=== PATIENT | male | born 1960 | race African-American/Black ===

== ENCOUNTER 2017-01-13 22:48 | Emergency (ER) | payer OTHER ==
[~2017-01-13] VITALS: Ht 190.5 cm; Wt 131.5 kg
--- NOTE | ~2017-01-13 | EKG ---
[place] [address] 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
[~2017-01-13 22:48] MED LIST: ANASTROZOLE1 MG PO; ANDRODERM1 EAC1; CARISOPRODOL 3350 MG PO; CIALIS10 MG PO; IBUPROFEN 600600 M1 PO; IBUPROFEN 800800 M1 PO; IBUPROFEN200 M2 PO; MEDROLDOSEPACK PO; NORCO 5-325 TA1 EACH PO; PRILOSEC20 MG PO; ULTRAM 50MG TAB50 MG PO; ZPAK PO
[2017-01-13 23:31] LABS: ABSOLUTE NEUTROPHILS 2.2 thou/uL (1.4-8.2); BASOPHILS 0.9 % (0.0-2.0); EOSINOPHILS 2.6 % (0.0-3.0); HEMATOCRIT 44.5 % (42.0-52.0); HEMOGLOBIN 15.5 gm/dL (14.0-18.0); LYMPHOCYTES 34.7 % (24.0-44.0); MCH 30.3 pg (26.0-34.0); MCHC 34.8 g/dL (28.0-37.0); MONOCYTES 9.4 % (1.0-8.0); PLATELET COUNT 242 thou/uL (150-400); POLYS 52.4 % (36.0-66.0); RBC 5.11 mil/uL (4.50-6.00); RDW 12.9 % (10.5-14.5); WBC 4.3 thou/uL (4.0-11.0)
[2017-01-13 23:32] LABS: MANUAL DIFF NO
[2017-01-13 23:35] LABS: ANION GAP 10 mmol/L (7-16); BUN 19 mg/dL (7-18); CALCIUM 9.6 mg/dL (8.5-10.1); CHLORIDE 103 mmol/L (98-107); CO2 25 mmol/L (21-32); CREATININE 1.6 mg/dL (0.7-1.3); GLUCOSE 134 mg/dL (74-106); POTASSIUM 4.3 mmol/L (3.5-5.1); SODIUM 138 mmol/L (136-145)
[2017-01-13 23:44] LABS: ALBUMIN 4.2 g/dL (3.4-5.0); ALKALINE PHOSPHATASE 99 U/L (46-116); MAGNESIUM 2.1 mg/dL (1.8-2.4); SGOT 69 U/L (15-37); SGPT 77 U/L (30-65); TOTAL BILIRUBIN 0.5 mg/dL (<0.1-1.0); TROPONIN-I < 0.04 ng/mL (<0.04-0.07)
[2017-01-13] MEDS ORDERED: PRILOSEC 20 MG20 MG PO (23:53)
[2017-01-13] MEDS ORDERED: NAPROSYN500 MG PO (23:53)
[2017-01-14 00:35] VITALS: BP 149/75
== END 2017-01-14 00:40 | disposition home or self-care (01) ==
LOC: ER 22:48
PROVIDERS: Emergency Medicine
DX: R07.89 Other chest pain (principal); K21.9 Gastro-esophageal reflux disease without esophagitis; I49.3 Ventricular premature depolarization

== ENCOUNTER 2017-04-08 18:55 | Emergency (ER) | payer OTHER ==
[~2017-04-08] VITALS: Ht 190.5 cm; Wt 135.6 kg
[~2017-04-08 18:55] MED LIST changes: +NAPROSYN500 MG PO; +PRILOSEC 20 MG20 MG PO
[2017-04-08 19:52] LABS: CALCIUM 9.2 mg/dL (8.5-10.1); CREATININE 1.7 mg/dL (0.7-1.3); HEMATOCRIT 44.1 % (42.0-52.0); HEMOGLOBIN 15.7 gm/dL (14.0-18.0); MCH 30.3 pg (26.0-34.0); MCHC 35.6 g/dL (28.0-37.0); MCV 85.2 fL (80.0-100.0); PLATELET COUNT 188 thou/uL (150-400); POTASSIUM 4.6 mmol/L (3.5-5.1); RBC 5.18 mil/uL (4.50-6.00); RDW 13.4 % (10.5-14.5); WBC 4.6 thou/uL (4.0-11.0)
[2017-04-08 20:13] LABS: ABSOLUTE NEUTROPHILS 3.9 thou/uL (1.4-8.2)
[2017-04-08] MEDS ORDERED: PROVENTIL HFA6.7 G1 INH (20:14)
[2017-04-08] MEDS ORDERED: PROMETHAZINE/C118 ML PO (20:32)
== END 2017-04-08 21:13 | disposition home or self-care (01) ==
LOC: ER 18:55
PROVIDERS: Physician Assistant
DX: J11.1 Influenza due to unidentified influenza virus with other respiratory manifestations (principal)

== ENCOUNTER 2018-11-30 15:37 | Emergency (ER) | payer OTHER ==
[~2018-11-30] VITALS: Ht 193 cm; Wt 127.0 kg
[~2018-11-30 15:37] MED LIST changes: +PROMETHAZINE/C118 ML PO; +PROVENTIL HFA6.7 G1 INH
[2018-11-30] MEDS ORDERED: CIALIS2.5 MG PO (15:46)
[2018-11-30] MEDS ORDERED: NORCO 5-325 TA1 EAC1 PO (18:38)
[2018-11-30 19:40] VITALS: BP 122/41
== END 2018-11-30 19:40 | disposition home or self-care (01) ==
LOC: ER 15:37
DX: S82.492A Other fracture of shaft of left fibula, initial encounter for closed fracture (principal); M25.511 Pain in right shoulder; W01.0XXA Fall on same level from slipping, tripping and stumbling without subsequent striking against object, initial encounter; Y92.89 Other specified places as the place of occurrence of the external cause; Y93.89 Activity, other specified; Y99.8 Other external cause status

== ENCOUNTER 2019-04-11 18:59 | Inpatient (IN) | payer OTHER ==
[~2019-04-11] VITALS: Ht 193 cm; Wt 125.6 kg
[~2019-04-11 18:59] MED LIST changes: +CIALIS2.5 MG PO; +NORCO 5-325 TA1 EAC1 PO
[2019-04-11 19:06] VITALS: BP 156/85
[2019-04-11 19:46] LABS: ABSOLUTE NEUTROPHILS 1.4 thou/uL (1.4-8.2); BASOPHILS 1.3 % (0.0-2.0); EOSINOPHILS 1.3 % (0.0-3.0); HEMATOCRIT 42.4 % (42.0-52.0); HEMOGLOBIN 14.5 gm/dL (14.0-18.0); LYMPHOCYTES 42.3 % (24.0-44.0); MCH 29.3 pg (26.0-34.0); MCV 86.1 fL (80.0-100.0); MONOCYTES 10.9 % (1.0-8.0); PLATELET COUNT 237 thou/uL (150-400); POLYS 44.2 % (36.0-66.0); RBC 4.93 mil/uL (4.50-6.00); RDW 13.2 % (10.5-14.5); WBC 3.2 thou/uL (4.0-11.0)
[2019-04-11 19:51] LABS: ANION GAP 8 mmol/L (7-16); BUN 12 mg/dL (7-18); CALCIUM 9.8 mg/dL (8.5-10.1); CHLORIDE 103 mmol/L (98-107); CO2 24 mmol/L (21-32); CREATININE 1.3 mg/dL (0.7-1.3); GLUCOSE 111 mg/dL (74-106); POTASSIUM 4.6 mmol/L (3.5-5.1); SODIUM 135 mmol/L (136-145)
[2019-04-11 20:01] LABS: ALBUMIN 4.1 g/dL (3.4-5.0); MAGNESIUM 2.2 mg/dL (1.8-2.4); SGOT 46 U/L (15-37); SGPT 57 U/L (30-65); TOTAL BILIRUBIN 0.5 mg/dL (<0.1-1.0); TOTAL PROTEIN 8.2 g/dL (6.4-8.2); TROPONIN-I <0.06 ng/mL (<0.06)
[2019-04-11 22:32] VITALS: BP 139/74
[2019-04-11 22:43] VITALS: BP 142/63
[2019-04-11 23:45] VITALS: BP 121/78
[2019-04-12 01:47] LABS: CHOLESTEROL 179 mg/dL (<200); HDL CHOLESTEROL 34 mg/dL (>40); LDL CHOLESTEROL 123 mg/dL (<100); TC:HDL 5.3 Ratio (Not establshd); TRIGLYCERIDE 110 mg/dL (<150); VLDL 22 mg/dL (<40)
[2019-04-12 01:50] LABS: SERUM ASSESSMENT N
[2019-04-12 05:29] VITALS: BP 112/69
[2019-04-12 08:15] VITALS: BP 139/79
[2019-04-12 11:22] VITALS: BP 138/89
--- NOTE | 2019-04-12 11:44 | EKG ---
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
[2019-04-12] MEDS ORDERED: GLUCOPHAGE500 MG PO (15:08)
[2019-04-12] MEDS ORDERED: ASA81BEC PO (15:08)
[2019-04-12] MEDS ORDERED: LIPITOR40 MG PO (15:08)
[2019-04-12] MEDS ORDERED: PEPCID20 MG PO (15:08)
[2019-04-12 15:27] VITALS: BP 110/75
[2019-04-12 15:30] VITALS: BP 110/75
== END 2019-04-12 16:44 | disposition home or self-care (01) | DRG 313 ==
LOC: ER 18:59 → EROBS 20:29 → 3W 23:09
PROVIDERS: Emergency Medicine; Nurse Practitioner; ADMIT Hospitalist
DX: R07.9 Chest pain, unspecified (principal); E11.9 Type 2 diabetes mellitus without complications; E78.5 Hyperlipidemia, unspecified; I10 Essential (primary) hypertension; Z82.49 Family history of ischemic heart disease and other diseases of the circulatory system; Z79.82 Long term (current) use of aspirin; Z79.899 Other long term (current) drug therapy
CPT/HCPCS: 10879

== ENCOUNTER 2019-10-30 17:47 | Emergency (ER) | payer OTHER ==
[~2019-10-30] VITALS: Ht 193 cm; Wt 124.7 kg
[~2019-10-30 17:47] MED LIST changes: +ASA81BEC PO; +GLUCOPHAGE500 MG PO; +LIPITOR40 MG PO; +PEPCID20 MG PO
[2019-10-30] MEDS ORDERED: KEFLEX500 M1 PO (18:28)
[2019-10-30] MEDS ORDERED: MOBIC15 MG PO (18:36)
[2019-10-30 19:02] VITALS: BP 127/70
== END 2019-10-30 18:30 | disposition home or self-care (01) ==
LOC: ER 17:47
DX: L03.012 Cellulitis of left finger (principal); I10 Essential (primary) hypertension; E78.5 Hyperlipidemia, unspecified; E11.9 Type 2 diabetes mellitus without complications; Z79.82 Long term (current) use of aspirin; Z79.899 Other long term (current) drug therapy

== ENCOUNTER 2019-12-29 09:30 | Emergency (ER) | payer OTHER ==
[~2019-12-29] VITALS: Ht 193 cm; Wt 129.3 kg
[~2019-12-29 09:30] MED LIST changes: +KEFLEX500 M1 PO; +MOBIC15 MG PO
[2019-12-29] MEDS ORDERED: CIALIS10 MG PO (09:38)
[2019-12-29 10:15] LABS: URINE BILIRUBIN NEGATIVE (Negative); URINE BLOOD NEGATIVE (Negative); URINE CLARITY CLEAR; URINE COLOR YELLOW; URINE GLUCOSE-RANDOM* NEGATIVE (Negative); URINE KETONES NEGATIVE (Negative); URINE LEUKOCYTES-REFLEX NEGATIVE (Negative); URINE NITRITE-REFLEX NEGATIVE (Negative); URINE PROTEIN (DIPSTICK) NEGATIVE (Negative); URINE SPECIFIC GRAVITY <= 1.005 (1.005-1.035); URINE UROBILINOGEN 0.2 E.U./dl (0.2-1.0)
[2019-12-29 10:38] LABS: CALCIUM 9.1 mg/dL (8.5-10.1); CREATININE 1.2 mg/dL (0.7-1.3); POTASSIUM 4.4 mmol/L (3.5-5.1)
[2019-12-29 10:44] LABS: ALBUMIN 4.1 g/dL (3.4-5.0); TOTAL BILIRUBIN 0.5 mg/dL (0.2-1.0); TOTAL PROTEIN 8.2 g/dL (6.4-8.2)
[2019-12-29 12:40] VITALS: BP 143/83
== END 2019-12-29 12:45 | disposition home or self-care (01) ==
LOC: ER 09:30
PROVIDERS: Emergency Medicine
DX: R10.12 Left upper quadrant pain (principal); R10.32 Left lower quadrant pain; I10 Essential (primary) hypertension; E11.9 Type 2 diabetes mellitus without complications; E78.5 Hyperlipidemia, unspecified; Z79.84 Long term (current) use of oral hypoglycemic drugs; Z79.82 Long term (current) use of aspirin; Z79.899 Other long term (current) drug therapy